=== PATIENT | male | born 1990 | race African-American/Black ===

== ENCOUNTER 2023-02-09 09:11 | Outpatient (AMB) | payer OTHER, SELFPAY ==
--- NOTE | 2023-02-09 09:16 | MHC.OFFVIS ---
Intake Intake Visit Reasons: New Pt - Left Knee ACL & Meniscus Injury Intake Note: Beau is a 32 year old male who presents today as a new patient with complaints of left knee pain. 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 After this he noticed significant pain, swelling and was unable to bear weight. He was seen at an urgent care who referred him to Ortho. He reports some pain only with physical activity but it is very minimal. He has completed pre-hab and reports that it was helpful. Allergies No Known Allergies Allergy (Verified 02/09/23 09:18) Medication List - Last Reconciled 02/09/23 by Mildred Mendez RN No Known Home Meds HPI New Pt - Left Knee ACL & Meniscus Injury HPI Details Beau is a 32 year old woman who presents to discuss his left knee pain. 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 He complains of pain with some physical activity, worse with twisting activities or using stairs. He also complains of locking & catching with activity and he feels limited in his activities. He complains of occasional sharp pain mostly in the lateral aspect of his knee. He has attended PT, which he says was helpful in improving his pain. He is unsure if he wants to continue playing Football, but his focus is on his family right now. He has a hx of a right knee ACL reconstruction with allograft done in 2019, which he says went well. He denies any issues with his right knee. He had an MRI done at an outside clinic, the report is available but he has not obtained a disc copy of his images. He is going to get those today and drop it off at the clinic [facility] Surgical History (Updated 02/07/23 @ 09:35 by Lita Barraza CMA) History of repair of anterior cruciate ligament of right knee (~2019) Social History (Updated 02/07/23 @ 09:36 by Lita Barraza CMA) Patient Tobacco Use Status: Never used Tobacco Review of Systems Const All systems reviewed & are unremarkable except as noted in HPI and below Physical Exam Const General: no acute distress, alert and awake Orientation/consciousness: patient oriented x3 HEENT Head: Yes normocephalic and Yes atraumatic Eyes EOM: EOMs intact bilaterally Resp Effort & Inspection: normal respiratory effort and able to speak in complete sentences Cardio Jugular venous distension: no JVD Skin General skin exam: turgor normal Rashes: no rashes Neuro General: patient oriented x3 Extrem Other: Left Knee: + lachamn s +medial steinmen's FUll ROM with pain at terminal flexion Psych Appearance: grossly normal Affect: normal affect Attitude: cooperative Results Reviewed Results Reviewed: MRI report: Complete ACL disruption with sprain of the distal portion of the PCL, associated bone bruises and anterior tibial translation Associated medial & lateral meniscal tears Hoffa's fat pad injury with focal small hematoma Contusion versus small tear of the conjoined tendon Assessment & Plan Assessment & Plan (1) Tears of meniscus and ACL of left knee: Code(s): S83.207A - Unspecified tear of unspecified meniscus, current injury, left knee, initial encounter; S83.512A - Sprain of anterior cruciate ligament of left knee, initial encounter Plan: This is a 32 year old man with a torn ACL, MMT, & LMT of the left knee, after a Football injury, DOI: 06/05/22. He complains of pain primarily with twisting activities or using stairs, along with painful locking/catching of his knee. He has completed a course of PT, which helped his pain, and he is unsure if he wants to return to professional Football as he is focusing on his family. I discussed his diagnosis and treatment options. His MR images were not available for review today. I recommend a left knee ACL reconstruction, with autograft. I would like to review his MR images prior to scheduling surgery. I discussed the risks, benefits, and alternatives including, but not limited to, the risk of pain, infection, stiffness, need for further surgery as well as potential medical complications such as blood clots, pulmonary embolism and cardiac complications. I discussed the recovery timeline and process as well as the importance of PT. Beau is a good candidate for this surgery, and he wishes to proceed with this decision. He will speak with Leigha to schedule this procedure. Plan Scribed for Lucio Thurman MD by Syed Portillo, district medical examiner, on 02/09/23 at 9:35 AM, EST. Coding Level of Care Code New Pt Level 4 (51896) Diagnoses Tears of meniscus and ACL of left knee S83.207A; S83.512A
== END 2023-02-09 09:50 | disposition home or self-care (01) ==
PROVIDERS: Visit Provider Orthopaedic Surgery
DX: S83.512A Sprain of anterior cruciate ligament of left knee, initial encounter (principal); S83.522A Sprain of posterior cruciate ligament of left knee, initial encounter; S83.232A Complex tear of medial meniscus, current injury, left knee, initial encounter; S83.272A Complex tear of lateral meniscus, current injury, left knee, initial encounter
CPT/HCPCS: 99204

== ENCOUNTER → 2023-02-09 09:11 | Outpatient (BNVA) | payer OTHER, SELFPAY | PROVIDERS: Visit Provider Orthopaedic Surgery ==

== ENCOUNTER 2023-03-01 11:26 | Day surgery (SDC) | payer OTHER, SELFPAY ==
[2023-02-24 13:12] VITALS: BMI 25.1
--- NOTE | 2023-02-28 10:01 | HO.ANESPROP2 ---
Documented by User: Angela Farr NP 02/28/23 10:02 HPI - Anesthesia Eval Consult details Narrative: 32yo M for Knee reconstruction ACL Autograft possible Allograft PMFSH Active Problems Active Problems: All Active Problems (Updated 02/24/23 @ 13:07 by Helene Granado RN) Tears of meniscus and ACL of left knee (Acute) Past Medical History Medical History (Updated 02/24/23 @ 13:07 by Helene Granado RN) Knee injury Surgical History Surgical History (Updated 02/24/23 @ 13:07 by Helene Granado RN) History of repair of anterior cruciate ligament of right knee (~2018) Social History Social History (Updated 02/07/23 @ 09:36 by Lita Barraza CMA) Patient Tobacco Use Status: Never used Tobacco Advance Directives: No Advance Directives Information Provided: Yes Meds Allergies Allergy/AdvReac Type Severity Reaction Status Date / Time No Known Allergies Allergy Verified 02/28/23 08:27 Exam Exam Date and Time: February 28, 2023 1001 Height,Weight and Vital Signs: Height 6 ft 1 in Weight 86.183 kg Assessment and Plan Assessment Anesthesia Assessment: Chart Reviewed Documented by User: Nicolás Monterroso MD 03/01/23 11:39 PMFSH Past Medical History Medical History (Updated 02/24/23 @ 13:07 by Helene Granado RN) Knee injury Family History Family history of problems with anesthesia: No Surgical History Surgical History (Updated 02/24/23 @ 13:07 by Helene Granado RN) History of repair of anterior cruciate ligament of right knee (~2018) History of Problems with Anesthesia: No Social History Social History (Updated 02/07/23 @ 09:36 by Lita Barraza CMA) Patient Tobacco Use Status: Never used Tobacco Advance Directives: No Advance Directives Information Provided: Yes Meds Allergies Allergy/AdvReac Type Severity Reaction Status Date / Time No Known Allergies Allergy Verified 02/28/23 08:27 Exam Airway Mallampati Class: II TM Dist: >3cm Neck ROM: Full Heart: rrr Lungs: cta Assessment and Plan Assessment Anesthesia Assessment: Anesthesia Plan Discussed Final Anesthetic Review Family History of Problems with Anesthesia: No History of Problems with Anesthesia: No NPO: Yes ASA Class: II Final Preanesthetic Review: No Changes in Pt Med Stat, Meds/Allgs Chart Reviewed, Consent Obtained/Reviewed and Anes Risks/Benef Reviewed Patient Risk: Low Procedure Risk: Intermediate Anesthetic Plan Anesthetic Plan: GA, Regional Block and Agree w/ Assess. and Plan Disposition: Standard PACU
[2023-03-01] VITALS (7 sets, daily range): BP systolic 113–130; BP diastolic 68–77; PULSE 56–83; RESP 14–18; TEMP 36.3–36.6; O2SAT 97–100
[2023-03-01] MEDS: Lactated Ringers 1,000 ML 100 ML IVCONT (11:47)
--- NOTE | 2023-03-01 11:52 | MHC.SHP ---
Pre-Procedural Eval Section A Date of Service: 03/01/23 The patient is an INPATIENT: No Changes since office visit: No Cold of Flu in the past 2 weeks, No New Medical Problems, No Changes in Medication and No Patient answered all questions The History & Physical has been completed within 30 days and I have reviewed it.: Yes Section B Chief Complaint: Sprain of anterior cruciate ligament of left knee Allergies: Allergies Allergy/AdvReac Type Severity Reaction Status Date / Time No Known Allergies Allergy Verified 02/28/23 08:27 Plan I have reviewed the history and physical and performed a pertinent physical examination on my patient. No changes have occurred unless specified. Time Spent With Patient Time: Total time managing care of this patient today ____ minutes.
--- NOTE | 2023-03-01 14:01 | P.BOP_ITS ---
Brief Operative Note Date of Service: 03/01/23 Pre-op diagnosis: Left ACL rupture Post-op diagnosis: other (1) left ACL rupture 2) MFC OCD) Procedure: Left acl reconstruction with auto and allograft Implants: Cortes and [employer]hew ACL button with 12x25 mm IF screw Surgeon: Lucio Thurman MD Anesthesia: GETA and regional Was an Curtain Framer used for this Procedure?: Yes Curtain Framer: Britt Severino Estimated blood loss (mL): 50 Tourniquet time (min): 45 IV fluids (mL): 1,000 Pathology: none sent Condition: stable Disposition: PACU
--- NOTE | 2023-03-06 09:23 | P.OP_ITS ---
Operative Note Operative Note Date of Service: 03/01/23 Narrative: Date of Service: 03/01/23 Pre-op diagnosis: Left ACL rupture Post-op diagnosis: other (1) left ACL rupture 2) MFC OCD) Procedure: Left acl reconstruction with auto and allograft Implants: Cortes [employer]hew ACL button with 12x25 mm IF screw Surgeon: Lucio Thurman MD Anesthesia: GETA and regional Was an Insurance Claims Representative used for this Procedure?: Yes Insurance Claims Representative: Britt Severino Estimated blood loss (mL): 50 Tourniquet time (min): 45 IV fluids (mL): 1,000 Pathology: none sent Condition: stable Disposition: PACU Procedure in detail: Patient was brought to the operating room placed supine on the arthroscopic table and prepped and draped in standard sterile fashion. A time-out was called to identify proper site proper procedure proper surgeon and IV antibiotics per weight were administered. Under anesthesia she had a + pivot shift. I made a oblique incision over the pes anserine bursa. Dissection was taken down to the sartorius fascia which was incised in line with the incision and the pes anserine tendons are identified. The 1st tendon was identified and the adhesions removed from the inferior border. It was tagged cut and a tendon stripper was used to remove at proximally. This was likely the core sella size it was diminutive. I then returned and identified the semi tendinosis. Again the adhesions were removed from the inferior border in a tendon stripper was used to remove the tendon proximally. This was slightly greater in caliber but given his size the 2 tendons together when quadrupled measured a 7. I wanted to provide him with the larger graft so the allograft was opened on the back table. I began by exsanguinating the limb and insufflating tourniquet to 300 mm Hg. Then made a standard anterolateral stab incision. The knee was insufflated with water and 30 degree arthroscope was placed. There was grade 1 fibrillations of the patella but overall suprapatellar pouch and the gutters were clean. I descended into the medial compartment where I made my far medial portal under direct visualization. The medial compartment was examined. There was a large stable posttraumatic chondral defect of the medial femoral condyle measuring 1 x 1.5 cm. The medial meniscus was stable although there was a posteromedial peripheral meniscus tear the root was intact. I shaved the flap of the medial meniscus and was satisfied with the extent of the work needed in the medial compartment. I then examined the notch where there was a + empty wall sign and an intact PCL. The lateral compartment was examined and there was also a peripheral meniscus tear that was debrided with a shaver. The root was stable. There were no cartilage changes of the lateral compartment. I debrided the stump and acl footprint and performed a limited notchplasty. I then, through a far AM portal and a 7mm behind the back guide, drilled a k-wire through the LFC with the knee in hyper-flexion. I measured the tunnel as a 38 and then after sizing the allograft/autograft on the back table drilled a 30 mm tunnel with an 11 mm reamer. The final 6 mm was drilled with a 4.5 reamer. I then pulled a suture through the femoral tunnel and turned my attention to the tibia. I did examine the femoral tunnel and was satisfied with the posterior wall and its location low and medial at the anatomic footprint. I placed my tibial drill guide in 55 deg and, through a anteromedial inc just lateral to the tibial tube rcle placed a k-wire into the notch exiting just medial to the anterior horn insertion of the lateral meniscus. I then over-reamed with an 11 reamer. I cleaned the tunnels up with a shaver. On the back table I whip-stitched the allograft to fit through an 11 aperture and attached the femoral button to the looped end. I placed the graft on 15lbs of tension for 10 minutes. I then passed the allograft through the tibial tunnel and femoral tunnel and flipped the button. I cycled the knee about 10-15 cycles and then placed a tibial interference screw with the knee in hyper-extension while holding the graft taught. Once I was satisfied that the interference screw was buried I examined the ACL and the medial meniscus repair. The repair was stable and the ACL was not impinging and there was a negative pivot shift. I then removed all instrumentation and closed the incisions with nylon. Patient was then placed in sterile dressings and a hinged knee brace. She was then extubated brought recovery room stable condition. There were no known complications.
== END 2023-03-01 15:25 | disposition home or self-care (01) ==
LOC: HO.SSS 11:28
PROVIDERS: Visit Provider Orthopaedic Surgery
PROC: (CPT 27428; principal; 2023-03-01 13:30)
DX: S83.512A Sprain of anterior cruciate ligament of left knee, initial encounter (principal); S83.222A Peripheral tear of medial meniscus, current injury, left knee, initial encounter; S83.262A Peripheral tear of lateral meniscus, current injury, left knee, initial encounter; X50.1XXA Overexertion from prolonged static or awkward postures, initial encounter; Y93.61 Activity, american tackle football; Y92.321 Football field as the place of occurrence of the external cause; Y99.9 Unspecified external cause status
CPT/HCPCS: 29888; 29880; C1713; C1769; J0131; J0690; J1100; J1885; J2405

== ENCOUNTER → 2023-03-01 11:26 | Outpatient (BNV) | payer OTHER, SELFPAY | PROVIDERS: Visit Provider Orthopaedic Surgery | DX: S83.512A Sprain of anterior cruciate ligament of left knee, initial encounter (principal); S83.232A Complex tear of medial meniscus, current injury, left knee, initial encounter; S83.222A Peripheral tear of medial meniscus, current injury, left knee, initial encounter | CPT/HCPCS: 29880; 29888 ==

== ENCOUNTER 2023-03-07 11:12 | Outpatient (REF) | payer OTHER, SELFPAY | END 2023-03-07 11:13 | disposition home or self-care (01) | LOC: HO.HOSX 11:12 | PROVIDERS: Visit Provider Physician Assistant | DX: Z13.89 Encounter for screening for other disorder (principal) ==

== ENCOUNTER 2023-03-23 14:57 | Outpatient (AMB) | payer OTHER, SELFPAY ==
--- NOTE | 2023-03-23 14:57 | MHC.OFFVIS ---
Intake Intake Visit Reasons: PO-Lt ACL 03/01 NE Intake Note: Beau is a 32 year old male who presents today for a post op appointment s/p Lt ACL 03/01 NE. Patient reports he is doing fine having some discomfort. Allergies No Known Allergies Allergy (Verified 03/23/23 14:58) HPI PO-Lt ACL 03/01 NE HPI Details 32-year-old male who presents in the office today 3 weeks status post left ACL reconstruction with auto and allograft, which was performed on 03/01/[address] Thurman. The patient reports he is doing fine, but does have some discomfort. [facility] Medical History Knee injury Surgical History (Updated 03/02/23 @ 09:11 by Britt Severino PA-C) History of repair of anterior cruciate ligament of right knee (~2019) Social History Patient Tobacco Use Status: Never used Tobacco Review of Systems Const All systems reviewed & are unremarkable except as noted in HPI and below Physical Exam Const General: cooperative, healthy appearing and no acute distress Resp Effort & Inspection: normal respiratory effort and able to speak in complete sentences Cardio Rate: regular rate Peripheral pulses: Peripheral pulses 2+ throughout GI Palpation (GI): Soft to palpation Skin Lesions: no lesions Rashes: no rashes Extrem Other: Left knee: Incision site is clean, dry, and intact. No surrounding erythema or drainage. No signs of infection. Mild to moderate effusion. ROM is 0-80 degrees. Assessment & Plan Assessment & Plan (1) S/P anterior cruciate ligament surgery: Code(s): Z98.890 - Other specified postprocedural states Plan Mr. Mckeon is a 32-year-old male who presents in the office today 3 weeks status post left ACL reconstruction with auto and allograft, which was performed on 03/01/[address] Thurman. The patient reports he is doing fine, but does have some discomfort. The patient will remain in the brace until he has quad control. He was educated that physical therapy will unlock the brace little by little. A therapy order was given to the patient while in the office today. Follow up will be in 6 weeks, or sooner if needed. Orders: Orders PT Evaluation and Treatment Today Z98.890 - Other specified postprocedural states Patient Instructions: Scribed for Britt Severino PA-C by Sammie Buckner medical imaging technologist, on 03/07/2023 at 3:06 pm, EST. Coding Level of Care Code Global (76782) Diagnoses S/P anterior cruciate ligament surgery Z98.890
== END 2023-03-23 15:49 | disposition home or self-care (01) ==
PROVIDERS: Visit Provider Physician Assistant
DX: Z98.890 Other specified postprocedural states (principal)
CPT/HCPCS: 99024

== ENCOUNTER → 2023-03-23 14:57 | Outpatient (BNVA) | payer OTHER, SELFPAY | PROVIDERS: Visit Provider Physician Assistant ==